=== PATIENT | female | born 1940 | race Two or more races ===

== ENCOUNTER 2019-03-28 12:03 | Inpatient (IN) | payer OTHER | END 2019-04-03 19:49 | disposition home health service (06) | LOC: ER 12:03 → TELE 17:36 → TELE-WESTW 18:51 | PROC: 0MTM0ZZ Resection of Left Hip Bursa and Ligament, Open Approach (ICD-10-PCS; principal; 2019-03-31 13:26) | PROC: 0SRS0JZ Replacement of Left Hip Joint, Femoral Surface with Synthetic Substitute, Open Approach (ICD-10-PCS; 2019-03-31 13:26) | DX: S72.002A Fracture of unspecified part of neck of left femur, initial encounter for closed fracture (principal); E87.1 Hypo-osmolality and hyponatremia; N39.0 Urinary tract infection, site not specified; E44.0 Moderate protein-calorie malnutrition; W19.XXXA Unspecified fall, initial encounter; E87.6 Hypokalemia; I10 Essential (primary) hypertension; K21.9 Gastro-esophageal reflux disease without esophagitis; E78.5 Hyperlipidemia, unspecified; M19.90 Unspecified osteoarthritis, unspecified site; M81.0 Age-related osteoporosis without current pathological fracture; I70.0 Atherosclerosis of aorta ==